=== PATIENT | female | born 1985 | race Caucasian/White ===

== ENCOUNTER 2017-06-17 13:41 | Outpatient (RCR) | payer MEDICAID, SELFPAY | END 2017-06-21 23:59 | LOC: NS 13:41 | PROVIDERS: Family Provider Internal Medicine; PCP Internal Medicine; Visit Provider Advanced Practice Midwife | DX: E66.9 Obesity, unspecified (principal); Z68.32 Body mass index [BMI] 32.0-32.9, adult; E78.2 Mixed hyperlipidemia; E28.2 Polycystic ovarian syndrome; Z71.3 Dietary counseling and surveillance ==

== ENCOUNTER 2021-04-13 16:37 | Emergency (ER) | payer MEDICAID, SELFPAY ==
[2021-04-13 16:39] VITALS: BP 128/97; PULSE 86; RESP 16; TEMP 36.9; O2SAT 96; BMI 23.6
--- NOTE | 2021-04-13 17:26 | EX.ED.VIS.PS ---
HPI HPI - Psych History of Present Illness Chief Complaint: Suicidal Informant: patient Onset/Context/Timing Onset: Weeks Narrative Narrative: Patient presents secondary to increased suicidal thoughts. Patient states has been working through some past traumas with a counselor and that has been bringing up increased feelings of suicidality. She states earlier today she was on a walk and considered stepping out in front of a car. She presents with an evaluation by crisis. She needs medical clearance for placement. [facility] Medical History (Updated 04/13/21 @ 21:[address] Ana Winters MD) Depression Fatigue Insomnia Psoriasis Psychophysiological insomnia Severe major depression Snoring Vitamin D deficiency Home Medications metoprolol succinate 12.5 mg PO DAILY 04/13/21 [History Last Taken Unknown] quetiapine 50 mg PO QHS 04/13/21 [History Last Taken Unknown] Allergy/AdvReac Type Severity Reaction Status Date / Time clonazepam [From Klonopin] Allergy Mild Vomitting Verified 04/13/21 16:42 Family History Grandmother Cancer Grandfather Colon cancer colon Mother Depression Schizophrenia Father Sleep apnea Social History Smoking Status: Never smoker how long ago did patient quit smokin, 1-2/week second hand exposure: No alcohol intake: never substance use type: does not use ROS ROS ED Constitutional Constitutional ED: Denies chills or fever(s) Eyes Eyes: Denies change in vision ENT ENT ED: Denies sore throat Cardiovascular Cardiovascular: Denies chest pain Respiratory/Chest Respiratory/Chest: Denies cough or dyspnea Gastrointestinal Gastrointestinal: Denies abdominal pain, diarrhea, nausea or vomiting Genitourinary Genitourinary ED: Denies dysuria Musculoskeletal Musculoskeletal: Denies back pain Neurologic Neurologic: Denies headache(s) or weakness Psychiatric Psychiatric: Reports anxiety, depression and suicidal thoughts Endocrine Endocrinology: Denies polydipsia or polyuria Allergic/Immunologic Allergic/Immunologic ED: Denies urticaria EXAM Physical Exam Const Vital Signs: 04/13/21 16:39 04/13/21 17:40 04/13/21 18:03 Temperature 98.5 F Temperature Source Temporal Pulse Rate 86 Respiratory Rate 16 16 16 Blood Pressure 128/97 H Blood Pressure Mean 107 Pulse Ox 96 Oxygen Delivery Method Room Air 04/13/21 19:37 Temperature Temperature Source Pulse Rate Respiratory Rate 16 Blood Pressure Blood Pressure Mean Pulse Ox Oxygen Delivery Method Positive well nourished and well developed General Appearance ED: well developed HEENT normocephalic and atraumatic Eyes PERRL and EOMs intact bilaterally Neck no lymphadenopathy and supple Resp normal respiratory effort and clear to auscultation bilaterally Cardio Rate: regular rate Rhythm: regular rhythm GI non-tender Palpation: soft Extremity normal to inspection Neuro oriented x3 Sensorium / Orientation: alert Psych mental status grossly normal and cooperative Appearance: grossly normal Mood & Affect: depressed Thought Content: suicidality Skin Lesions: no lesions Rashes: no rashes MDM MDM MDM Narrative Medical decision making narrative: Lab work for medical clearance obtained. Urinalysis ordered. Lab Data Attestation: I reviewed the patient's lab results. Labs: Laboratory Results - last 24 hr 04/13/21 04/13/21 04/13/21 17:15 17:15 17:15 WBC 7.1 RBC 5.06 Hgb 14.8 Hct 44.0 MCV 87.0 MCH 29.2 MCHC 33.6 RDW Std Deviation 36.9 RDW Coeff of [place] 11.7 Plt Count 207 MPV 11.2 Immature Gran % (Auto) 0.700 Neut % (Auto) 75.4 H Lymph % (Auto) 16.4 L [place] % (Auto) 6.8 Eos % (Auto) 0.4 Baso % (Auto) 0.3 Absolute Neuts (auto) 5.3 Absolute Lymphs (auto) 1.16 Nucleated RBC % 0 Sodium 138 Potassium 3.5 Chloride 104 Carbon Dioxide 27.0 Anion Gap 7 BUN 13 Creatinine 0.91 Estim Creat Clear Calc 65.11 Est GFR (MDRD) Af Amer 90 Est GFR (MDRD) Non-Af 75 BUN/Creatinine Ratio 14.3 Glucose 78 Calcium 9.4 Serum , Qual Urine Color Urine Clarity Urine pH Ur Specific [place] Urine Protein Urine Glucose (UA) Urine Ketones Urine Occult Blood Urine Nitrite Urine Bilirubin Urine Urobilinogen Ur Leukocyte Esterase Urine RBC Urine WBC Ur Squamous Epith Cells Urine Bacteria Urine Mucus Urine Opiates Screen Urine Methadone Screen Ur Barbiturates Screen Ur Phencyclidine Scrn Ur Amphetamines Screen U Methamphetamin-MDMA U Benzodiazepines Scrn Urine Cocaine Screen U Cannabinoids Screen Ur Drug Screen Comment Ethyl Alcohol < 3.0 04/13/21 04/13/21 04/13/21 17:15 17:15 17:15 WBC RBC Hgb Hct MCV MCH MCHC RDW Std Deviation RDW Coeff of [place] Plt Count MPV Immature Gran % (Auto) Neut % (Auto) Lymph % (Auto) [place] % (Auto) Eos % (Auto) Baso % (Auto) Absolute Neuts (auto) Absolute Lymphs (auto) Nucleated RBC % Sodium Potassium Chloride Carbon Dioxide Anion Gap BUN Creatinine Estim Creat Clear Calc Est GFR (MDRD) Af Amer Est GFR (MDRD) Non-Af BUN/Creatinine Ratio Glucose Calcium Serum , Qual NEGATIVE Urine Color Yellow Urine Clarity Sl. Cloudy Urine pH 5.0 Ur Specific [place] 1.025 Urine Protein 30 H Urine Glucose (UA) Normal Urine Ketones 50 H Urine Occult Blood 250 H Urine Nitrite Negative Urine Bilirubin Negative Urine Urobilinogen 1 H Ur Leukocyte Esterase 500 H Urine RBC 5-10 SEEN Urine WBC 25-50 SEEN Ur Squamous Epith Cells 0-5 SEEN Urine Bacteria RARE Urine Mucus 1+ Urine Opiates Screen NEGATIVE Urine Methadone Screen NEGATIVE Ur Barbiturates Screen NEGATIVE Ur Phencyclidine Scrn NEGATIVE Ur Amphetamines Screen NEGATIVE U Methamphetamin-MDMA NEGATIVE U Benzodiazepines Scrn NEGATIVE Urine Cocaine Screen NEGATIVE U Cannabinoids Screen NEGATIVE Ur Drug Screen Comment Ethyl Alcohol Rapid COVID: Negative EKG Initial EKG: Attestation: I personally reviewed and interpreted this EKG as follows: Interpretation: Sinus Rhythm (Sinus 89 with no acute ischemia.) Treatment and Re-Evaluation Comments:: Patient's lab work reviewed. Urinalysis does reveal infection. Remainder of lab work is unremarkable. Patient is given a dose of Bactrim. Patient has been accepted at [facility] will be transferred via EMS. Discharge Plan Triage Chief Complaint: Suicidal ED Provider: Ana Winters Dx/Rx/DC Orders Clinical Impression: Suicidal ideation, UTI (urinary tract infection) Prescriptions: No Action quetiapine 50 mg Tablet 50 mg PO QHS RF: 0 metoprolol succinate 25 mg Tablet Extended Release 24 Hr 12.5 mg PO DAILY RF: 0 Primary Care Provider: Leny Freed Referrals: Leny Freed MD [Primary Care Provider] - Disposition Disposition: Psychiatric Hospital or Unit Discharge Location: [facility]
[2021-04-13 17:37] LABS: Color, Urine Yellow (Yellow); Glucose, Dipstick Normal (Normal); Ketone-Dipstick 50 mg/dl (Negative); Leukocyte Esterase-Dipstick 500 /ul (Negative); Nitrite-Dipstick Negative (Negative); Occult Blood-Urine 250 /ul (Negative); Protein-Dipstick 30 mg/dl (Negative); Specific Gravity, Urine 1.025 (1.002-1.030); Urine Bilirubin Dipstick Negative (Negative); Urine Clarity Sl. Cloudy (Clear); Urine Urobilinogen 1 mg/dl (Normal)
--- NOTE | 2021-04-13 17:37 | CM.ED ---
Social Work Telephone call from Yana rojas. Yana reports to have evaluated patient in the community and will bring assessment with pink slip to ED. Medical team updated. PLAN: Crisis to complete assessment when patient is medically cleared. Simon RICHTER, ASHLEYS
[2021-04-13 17:38] LABS: Absolute Lymphocyte Count 1.16 X10^3/uL (0.83-4.51); Absolute Neutrophil Count 5.3 X10^3/uL (2.0-7.7); Basophil# 0.02 X10^3/uL; Basophil% 0.3 % (0-1); Eosinophil# 0.03 X10^3/uL; Eosinophils% 0.4 % (0-5); Hemoglobin 14.8 g/dL (12.0-15.0); Lymphocyte # 1.16 X10^3/ul (0.83-4.51); Lymphocyte % 16.4 % (19-41); Mean Corp Hgb Conc 33.6 g/dL (32-36); Mean Corpuscular Hgb 29.2 pg (27.0-32.0); Mean Platelet Vol. 11.2 fl (6.2-12.0); Monocyte# 0.48 X10^3/uL; Monocyte% 6.8 % (0-10); NRBC Flagged by Analyzer 0 % (0-5); Neutrophil # 5.32 X10^3/uL (2.7-7.7); Neutrophil % 75.4 % (47-70); Platelet Count 207 K/mm3 (150-450); RBC Distribution Width CV 11.7 % (11.6-14.6); RBC Distribution Width SD 36.9 fl (35.1-43.9); Red Blood Count 5.06 M/mm3 (4.2-5.4); White Blood Count 7.1 K/mm3 (4.4-11.0)
[2021-04-13 17:40] VITALS: RESP 16
[2021-04-13 17:43] LABS: White Blood Cells 25-50 SEEN /hpf (0-5)
[2021-04-13 17:44] LABS: Bacteria RARE /hpf (None Seen); Red Blood Cells-Urine 5-10 SEEN /hpf (0-5); Squamous Epithelial Cells - UA 0-5 SEEN /hpf (5-10)
[2021-04-13 17:45] LABS: Mucous, Urine 1+ /hpf (<or=2+)
[2021-04-13 17:50] LABS: Anion Gap 7 (5-15); BUN 13 mg/dL (7-18); BUN/Creat Ratio 14.3 RATIO (10-20); Calcium,Total 9.4 mg/dL (8.5-10.1); Chloride 104 mmol/L (98-107); Creatinine, Serum 0.91 mg/dL (0.55-1.02); EST Glomerular Filtration Rate 75 mL/min (>60); Est Glom Filt Rate - Afr Amer 90 mL/min (>60); Estimated Creatinine Clearance 65.11 ml/min; Glucose 78 mg/dL (74-106); Potassium 3.5 mmol/L (3.5-5.1); Sodium Level 138 mmol/L (136-145)
[2021-04-13 17:51] LABS: Internal QC Validated? YES +Cl - CLEAR BKGD; Pregnancy, Serum, hCG Quali. NEGATIVE Negative
[2021-04-13 17:52] LABS: Amphetamine Urine VISTA NEGATIVE (<1000 ng/mL); Barbiturate Urine VISTA NEGATIVE (< 200 ng/mL); Benzodiazepine Urine VISTA NEGATIVE (< 200 ng/mL); Cocaine Urine VISTA NEGATIVE (< 300 ng/mL); Ecstacy Urine VISTA NEGATIVE (< 500 ng/mL); Methadone Urine VISTA NEGATIVE (< 300 ng/mL); PCP Urine VISTA NEGATIVE (< 25 ng/mL); THC Urine VISTA NEGATIVE (< 50 ng/mL); Vista UDS pH Range 5
[2021-04-13 18:00] LABS: Alcohol, Blood (Medical)-Serum < 3.0 mg/dL
[2021-04-13 18:03] VITALS: RESP 16
--- NOTE | 2021-04-13 18:34 | CM.ED ---
Social Work Patient medically cleared per physician. Clinicals faxed to crisis for inpatient psychiatric placement. Telephone call to crystal, [place]. This social services counselor updated [facility] on above information. Simon Chu MSW, KEV
--- NOTE | 2021-04-13 19:05 | EKG12_ITS ---
Test Reason : MHC Blood Pressure : / mmHG Vent. Rate : 089 BPM Atrial Rate : 089 BPM P-R Int : 140 ms QRS Dur : 078 ms QT Int : 362 ms P-R-T Axes : 053 045 016 degrees QTc Int : 440 ms Normal sinus rhythm Nonspecific T wave abnormality Abnormal ECG Confirmed by DANG TRIPLETT, JOSIAH ([id number]), communications editor LISET GUTIÉRREZ ([id number]) on 04/16/2021 10:43:43 A M Referred By: IMMANUEL Confirmed By:RIGOBERTO LEONG MD
[2021-04-13] MEDS: Smz/Tmp Ds Tablet 1 TABLET PO (19:36)
[2021-04-13 19:37] VITALS: RESP 16
--- NOTE | 2021-04-13 21:46 | CM.ED ---
Social Work Telephone call from Haleigh rojas. Patient accepted to [facility]. Patient accepted by Dr. Rebollar. Nurse to call report to [phone]. Patient admitted to [id number]. Medical team updated. [facility] to set up transportation. Simon RICHTER, KEV
[2021-04-13 21:51] VITALS: BP 124/74; PULSE 80; RESP 17; TEMP 37.1; O2SAT 98
[2021-04-13 22:03] VITALS: RESP 17
== END 2021-04-13 22:11 ==
PROVIDERS: Emergency Provider Emergency Medicine; PCP Internal Medicine; Visit Provider Emergency Medicine
DX: R45.851 Suicidal ideations (principal); N39.0 Urinary tract infection, site not specified; F32.A Depression, unspecified; Z79.899 Other long term (current) drug therapy; Z87.891 Personal history of nicotine dependence
CPT/HCPCS: 36415; 80048; 80307; 81001; 82077; 84703; 85025; 87426; 93005; 99285